=== PATIENT | female | born 1955 | race Caucasian/White ===

== ENCOUNTER 2022-06-02 11:20 | Emergency (ER) | payer MEDICAID ==
[~2022-06-02] VITALS: Ht 167.6 cm; Wt 73.5 kg
[2022-06-02] MEDS ORDERED: IV NS 0.9% 1,000 ML BAG IV ONE (11:30)
--- NOTE | 2022-06-02 11:30 | NUR ---
[id number] from [facility] s/p syncopal episode while getting hair washed. 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
--- NOTE | 2022-06-02 11:30 | NUR ---
AT BEDSIDE FOR EVAL
--- NOTE | 2022-06-02 11:31 | NUR ---
blood sample obtained sent to lab
--- NOTE | 2022-06-02 11:40 | NUR ---
established iv line 20g RAC
[2022-06-02 11:46] LABS: BASOPHILS % (AUTO) 0.4 % (0.0-2.0); EOSINOPHILS % (AUTO) 0.8 % (0.0-6.0); HEMATOCRIT 45 % (33-45); HEMOGLOBIN 14.5 g/dL (11.5-14.8); MEAN CORPUSCULAR HGB CONC 33 g/dl (31.0-36.0); MEAN CORPUSCULAR VOLUME 87 fL (82-100); MONOCYTES # (AUTO) 0.4 K/uL (0.1-1.30); MONOCYTES % (AUTO) 4.3 % (2.0-12.0); NEUTROPHILS # (AUTO) 5.2 K/uL (1.8-8.9); NEUTROPHILS % (AUTO) 60.5 % (43.0-81.0); PLATELET COUNT (AUTO) 275 K/uL (150-450); RED BLOOD CELL COUNT(AUTO) 5.12 MIL/uL (4.0-5.2); WHITE BLOOD COUNT (AUTO) 8.7 K/uL (4.3-11.0)
--- NOTE | 2022-06-02 11:50 | NUR ---
taken to ct
[2022-06-02] MEDS ORDERED: LOSA100T31 PO (11:55)
[2022-06-02] MEDS ORDERED: METF-440 PO (11:55)
[2022-06-02] MEDS ORDERED: METO-357 PO (11:55)
[2022-06-02] MEDS ORDERED: AMLO-212 PO (11:55)
[2022-06-02] MEDS ORDERED: ASPI-1420 PO (11:55)
[2022-06-02] MEDS ORDERED: ATOR40TA PO (11:55)
[2022-06-02 11:58] LABS: ALANINE AMINOTRANSFERASE 18 U/L (12-78); ALBUMIN 3.9 g/dL (3.4-5.0); ALKALINE PHOSPHATASE 62 U/L (46-116); ASPARTATE AMINOTRANSFERASE 17 U/L (15-37); BILIRUBIN,DIRECT 0.1 mg/dL (0.0-0.2); BILIRUBIN,TOTAL 0.4 mg/dL (0.2-1.0); CARBON DIOXIDE 27 mmol/L (21-32); CHLORIDE 104 mmol/L (98-107); CREATININE 0.9 mg/dL (0.6-1.3); GLUCOSE 127 mg/dL (74-106); POTASSIUM 3.4 mmol/L (3.5-5.1); SODIUM SERUM 137 mmol/L (136-145); TOTAL PROTEIN, SERUM 7.3 g/dL (6.4-8.2); UREA NITROGEN, BLOOD 15 mg/dL (7-18)
--- NOTE | 2022-06-02 12:12 | NUR ---
COVID SWAB COLLECTED AND SENT TO LAB
--- NOTE | 2022-06-02 12:17 | NUR ---
PT RETURNED FROM CT
[2022-06-02] MEDS ORDERED: BLOO-668 IN (13:06)
--- NOTE | 2022-06-02 14:35 | NUR ---
PT WILL BE TRANSFERRED TO [facility].
--- NOTE | 2022-06-02 15:34 | NUR ---
STILL WAITING FOR BED AT [facility] PER CM DAVID
[2022-06-02 16:15] LABS: BILIRUBIN,URINE NEGATIVE (NEGATIVE); COLOR,URINE YELLOW (YELLOW); LEUKOCYTE ESTERASE ,URINE NEGATIVE (NEGATIVE); NITRITE, URINE NEGATIVE (NEGATIVE); PROTEIN,URINE NEGATIVE (NEGATIVE); UGLUCOSE NEGATIVE (NEGATIVE); UROBILINOGEN,URINE 0.2 EU/dL (0.2)
--- NOTE | 2022-06-02 17:13 | NUR ---
STILL WAITING FOR BEDS PER DAVID
--- NOTE | 2022-06-02 17:40 | NUR ---
AMA FROM SIGNED BY PATIENT.
--- NOTE | 2022-06-02 17:41 | NUR ---
IV removed. Catheter intact and site benign. Pressure and 4x4 applied to site. No bleeding noted.
--- NOTE | 2022-06-02 17:59 | NUR ---
PROVIDED PATIENTS NECESSARY PAPERS AND TESTS RESULTS.
--- NOTE | 2022-06-02 18:01 | NUR ---
Patient does not wish to proceed with medical care recommended by Dr. BERGER. Patient given information related to possible complications, up to and including , which could occur as a result of leaving the hospital at this time. Patient verbalizes understanding of risks involved due to leaving against medical advice. Patient has signed AMA form.
[2022-06-02 18:02] VITALS: BP 148/68
--- NOTE | 2022-06-02 19:16 | NUR ---
MADE DR HUDSON AWARE THAT PATIENT WENT AGAINST MEDICAL ADVICE.
== END 2022-06-02 18:04 | disposition left against medical advice (07) ==
LOC: ER 11:30
DX: G45.9 Transient cerebral ischemic attack, unspecified (principal); R55 Syncope and collapse; Z20.822 Contact with and (suspected) exposure to COVID-19; Z53.29 Procedure and treatment not carried out because of patient's decision for other reasons; E87.6 Hypokalemia; Z79.82 Long term (current) use of aspirin; Z79.899 Other long term (current) drug therapy; E11.9 Type 2 diabetes mellitus without complications; Z79.84 Long term (current) use of oral hypoglycemic drugs
CPT/HCPCS: 99285; 96360; 70450; 71045; 87426; 93005; 85025; 80048; 80076; 81003; 36415; 84484; 85730; C9803; J7030